=== PATIENT | female | born 1985 | race African-American/Black ===

== ENCOUNTER → 2018-06-17 | Outpatient (CLI) | payer OTHER | END | disposition home or self-care (01) | LOC: SURG 09:16 | PROVIDERS: ATTEND Anesthesiology Pain Medicine | DX: M47.26 Other spondylosis with radiculopathy, lumbar region (principal); M47.812 Spondylosis without myelopathy or radiculopathy, cervical region; M19.90 Unspecified osteoarthritis, unspecified site; Z79.899 Other long term (current) drug therapy | CPT/HCPCS: 99203 ==

== ENCOUNTER 2020-07-08 07:12 | Emergency (ER) | payer OTHER ==
[~2020-07-08] VITALS: Ht 162.6 cm; Wt 74.0 kg
[2020-07-08 07:18] VITALS: BP 124/89
[2020-07-08] MEDS ORDERED: CYCLOBENZAPRINE 10 MG TABLET. PO ONE (07:30)
--- NOTE | 2020-07-08 07:35 | PHYS DOC ---
Adult General [facility] HPI Patient is a 35F with no significant past medical history presents emergency department complaining of right-sided back pain. Patient states that approximate 1 month ago she started having spontaneous right lower back pain which radiates down the right leg. Patient describes this as a shooting pain down the right leg. Was seen in clinic on June 15 and was given muscle relaxants which helped but states that she is run out of them. Patient states pain is the same. Denies any new injury. Denies any numbness or weakness in either lower extremities. Review of Systems Review of Systems Constitutional: Denies fever or chills [] Eyes: Denies change in visual acuity, redness, or eye pain [] HENT: Denies nasal congestion or sore throat [] Respiratory: Denies cough or shortness of breath [] Cardiovascular: No additional information not addressed in HPI [] GI: Denies abdominal pain, nausea, vomiting, bloody stools or diarrhea [] : Denies dysuria or hematuria [] Musculoskeletal: Denies back pain or joint pain [] Integument: Denies rash or skin lesions [] Neurologic: Denies headache, focal weakness or sensory changes [] Endocrine: Denies polyuria or polydipsia [] All other systems were reviewed and found to be within normal limits, except as documented in this note. Physical Exam Physical Exam Constitutional: Well developed, well nourished, no acute distress, non-toxic appearance. [] HENT: Normocephalic, atraumatic, bilateral external ears normal, oropharynx moist, no oral exudates, nose normal. [] Eyes: PERRLA, EOMI, conjunctiva normal, no discharge. [] Neck: Normal range of motion, no tenderness, supple, no stridor. [] Cardiovascular:Heart rate regular rhythm, no murmur [] Lungs & Thorax: Bilateral breath sounds clear to auscultation [] Abdomen: Bowel sounds normal, soft, no tenderness, no masses, no pulsatile masses. [] Skin: Warm, dry, no erythema, no rash. [] Back: No tenderness, no CVA tenderness. [] Extremities: No tenderness, no cyanosis, no clubbing, ROM intact, no edema. [] Neurologic: Alert and oriented X 3, normal motor function, normal sensory function, no focal deficits noted. [] Psychologic: Affect normal, judgement normal, mood normal. [] Heart Score Risk Factors: Risk Factors: DM, Current or recent (<one month) smoker, HTN, HLP, family history of CAD, obesity. Risk Scores: Risk Factors: DM, Current or recent (<one month) smoker, HTN, HLP, family history of CAD, obesity. Course & Med Decision Making Course & Med Decision Making Pertinent Labs and Imaging studies reviewed. (See chart for details) 35-year-old female with acute on chronic right lower back pain which is most consistent with sciatica pain. At this time we will treat the patient symptomatically and feel the patient needs a follow-up with her primary care physician. Dragon Disclaimer Dragon Disclaimer This electronic medical record was generated, in whole or in part, using a voice recognition dictation system. Departure Departure: Impression: Primary Impression: Right sided sciatica Disposition: 01 DC HOME SELF CARE/HOMELESS Condition: GOOD Referrals: PCPJESUSITA (PCP) Patient Instructions: Sciatica, [id number] Additional Instructions: Thank you for visiting our emergency department. You were seen for your back pain. This is likely due to sciatica or mild pressure on the right side. We recommend that you make an appointment with your primary care physician as soon as possible to be further evaluated and treated for this condition. Please return the emergency department if there is any sudden worsening of your symptoms, numbness and weakness in your leg or fever greater than 101 F Scripts Cyclobenzaprine Hcl (CYCLOBENZAPRINE HCL) 10 Mg Tablet 1 TAB PO TID for pain for 30 Days, #90 TAB Prov: RAFITA SAMANO MD 07/08/20 RAFITA SAMANO MD Jul 08, 2020 07:35
[2020-07-08] MEDS ORDERED: KETOROLAC 30 MG/ML VIAL. IM ONE (07:45)
[2020-07-08] MEDS ORDERED: CYCL-331 PO (07:54)
[2020-07-09] MEDS ORDERED: CEPH-264 PO (00:19)
== END 2020-07-08 08:10 | disposition home or self-care (01) ==
LOC: ER 07:12
DX: M54.41 Lumbago with sciatica, right side (principal)
CPT/HCPCS: 96372; 99283; J1885

== ENCOUNTER 2020-07-08 21:12 | Emergency (ER) | payer OTHER ==
[~2020-07-08] VITALS: Ht 162.6 cm; Wt 74.0 kg
[~2020-07-08 21:12] MED LIST: CYCL-331 PO
--- NOTE | 2020-07-08 21:14 | PHYS DOC ---
Past History Past Medical History: No Pertinent History, UTI Past Surgical History: No Surgical History, Hysterectomy Alcohol Use: None General Adult HPI: HPI: ".. I ve been having back pain now off and on since May. I ve been on meds for muscle sprain with no improvement.. I just got to get some done to fix it..." Patient is a 35 year old FEMALE who presents with above hx and complaints of back pain that seems to be localized to right flank and lumbar area. Patient has been seen previously and diagnosed with muscle strain. Did do a course of muscle relaxants and ibuprofen with no improvement. No history of fever or chills. No history of trauma. No history of immunosuppression. No history of travel or specific ill contacts. Has history of previous urinary tract infections. No problems with defecation or urination noted. No history of cancer. No history of IV drug use. Has had history of previous urinary tract infections. No history of renal stones with her family members. Review of Systems: Review of Systems: Constitutional: Denies fever or chills Eyes: Denies change in visual acuity HENT: Denies nasal congestion or sore throat Respiratory: Denies cough or shortness of breath Cardiovascular: Denies chest pain or edema GI: Denies abdominal pain, nausea, vomiting, bloody stools or diarrhea : Denies dysuria Musculoskeletal: Complains of right flank back pain Integument: Denies rash Neurologic: Denies headache, focal weakness or sensory changes Endocrine: Denies polyuria or polydipsia Lymphatic: Denies swollen glands Psychiatric: Denies depression or anxiety Family History: Family History: Noncontributory to presentation Current Medications: Current Meds: See nursing for home meds Allergies: Allergies: Allergies Coded Allergies Type Severity Reaction Last Updated Verified No Known Drug Allergies 07/08/20 No Physical Exam: PE: Constitutional: Moderate acute distress, non-toxic appearance. [] HENT: Normocephalic, atraumatic, bilateral external ears normal, oropharynx moist, no oral exudates, nose normal. [] Eyes: PERRLA, EOMI, conjunctiva normal, no discharge. [] Neck: Normal range of motion, no tenderness, supple, no stridor. [] Cardiovascular:Heart rate regular rhythm, no murmur [] Lungs & Thorax: Bilateral breath sounds clear to auscultation [] Abdomen: Bowel sounds normal, soft, no tenderness, no masses, no pulsatile masses. Old surgery scar Skin: Warm, dry, no erythema, no rash. [] Back: No tenderness, right flank CVA tenderness. Some right lumbar muscle tenderness. Extremities: No tenderness, no cyanosis, no clubbing, ROM intact, no edema. [] Neurologic: Alert and oriented X 3, normal motor function, normal sensory function, no focal deficits noted. DTRs +2 at patella and brachial. Straight leg lift does not exacerbate sciatic nerve pain. Psychologic: Affect anxious , judgement normal, mood normal. [] EKG: EKG: [] Radiology/Procedures: Radiology/Procedures: [facility] [place] [id number] IMAGING REPORT Signed PATIENT: PRIYANKA PEPPER ACCOUNT: [id number] : 1985 LOCATION: ER AGE: 35 SEX: F EXAM STATUS: REG ER ORD. PHYSICIAN: HOUSTON BERNAL MD REASON: Rt. flank back pain PROCEDURE: CT LUMBAR SPINE WO CONTRAST Exam: CT lumbar spine without contrast INDICATION: Right flank pain, back pain TECHNIQUE: Sequential axial images through the lumbar spine obtained without IV contrast. Sagittal and coronal reformatted images were reconstructed from the axial data and reviewed. Comparisons: None FINDINGS: Vertebral body heights and alignment are well-maintained. Fracture to the lumbar spine is not identified. No significant spondylotic change in the lumbar spine. Visualized paraspinal soft tissues are unremarkable. IMPRESSION: Negative CT lumbar spine for acute traumatic injury. Exposure: One or more of the following in the visualized dose reduction techniques were utilized for this examination: 1. Automated exposure control 2. Adjustment of the MA and/or KV according to patient size 3. Use of iterative of reconstructive technique Electronically signed by: Kayla Simmons MD (07/08/2020 11:31 PM) [facility] DICTATED AND SIGNED BY: KAYLA SIMMONS MD DATE: 07/08/202328 CC: HOUSTON BERNAL MD; PCP,NO ~MTH0 0 Heart Score: Risk Factors: Risk Factors: DM, Current or recent (<one month) smoker, HTN, HLP, family history of CAD, obesity. Risk Scores: Score 0 - 3: 2.5% MACE over next 6 weeks - Discharge Home Score 4 - 6: 20.3% MACE over next 6 weeks - Admit for Clinical Observation Score 7 - 10: 72.7% MACE over next 6 weeks - Early Invasive Strategies Course & Med Decision Making: Course & Med Decision Making Pertinent Labs and Imaging studies reviewed. (See chart for details) Patient Tylenol ibuprofen for pain. Patient push fluids. Patient take Keflex 500 mg 3 times a day for 7 days. Patient follow-up urine cultures. Patient follow-up primary. Patient return if any concerns. Patient push vitamin C drinks. Impression: 1. Right flank back pain 2. Urinary tract infection [] Dragon Disclaimer: Dragon Disclaimer: This electronic medical record was generated, in whole or in part, using a voice recognition dictation system. Departure Departure: Referrals: PCP,NO (PCP) Scripts Cephalexin (KEFLEX) 500 Mg Capsule 500 MG PO TID for UTI for 7 Days, BOTTLE Prov: HOUSTON BERNAL MD 07/09/20 Dragon Disclaimer This chart was dictated in whole or in part using Voice Recognition software in a busy, high-work load, and often noisy Emergency Department environment. It may contain unintended and wholly unrecognized errors or omissions. Dragon Disclaimer This chart was dictated in whole or in part using Voice Recognition software in a busy, high-work load, and often noisy Emergency Department environment. It may contain unintended and wholly unrecognized errors or omissions. HOUSTON BERNAL MD Jul 08, 2020 21:14
[2020-07-08 21:51] VITALS: BP 126/84
[2020-07-08 22:08] LABS: AMPHETAMINE/METHAMPHETAMINE NEG (NEG); BARBITURATES NEG (NEG); BENZODIAZEPINES NEG (NEG); CANNABINOIDS NEG (NEG); COCAINE NEG (NEG); METHADONE NEG (NEG); OPIATES NEG (NEG); PHENCYCLIDINE NEG (NEG)
[2020-07-08 22:19] LABS: BACTERIA,URINE 0 /HPF (0-FEW); BILIRUBIN,URINE NEG (NEG); CLARITY,URINE CLEAR; COLOR,URINE COLORLESS; GLUCOSE,URINE NEG (NEG); NITRITE,URINE NEG (NEG); SQUAMOUS EPITHELIAL CELL,UR MANY /LPF; UROBILINOGEN,URINE 0.2 mg/dL (0.2 mg/dL)
--- NOTE | 2020-07-08 23:33 | RAD ---
Exam: CT lumbar spine without contrast INDICATION: Right flank pain, back pain TECHNIQUE: Sequential axial images through the lumbar spine obtained without IV contrast. Sagittal an d coronal reformatted images were reconstructed from the axial data and reviewed. Comparisons: None FINDINGS: Vertebral body heights and alignment are well-maintained. Fracture to the lumbar spine is not identified. No significant spondylotic change in the lumbar spine. Visualized paraspinal soft tissues are unremarkable. IMPRESSION: Negative CT lumbar spine for acute traumatic injury. Exposure: One or more of the following in the visualized dose reduction techniques were utilized for this examination: 1. Automated exposure control 2. Adjustment of the MA and/or KV according to patient size 3. Use of iterative of reconstructive technique Electronically signed by: Denise Ascencio MD (07/08/2020 11:31 PM) [facility]
[2020-07-09] MEDS ORDERED: CEPH-264 PO (00:19)
[2020-07-09] MEDS ORDERED: cefTRIAXone SODIUM 1 GM VIAL ONE (00:38)
[2020-07-09] MEDS ORDERED: LIDOCAINE 1% Multi-Dose 20 ML VIAL. ONE (00:38)
== END 2020-07-09 00:47 | disposition home or self-care (01) ==
LOC: ER 21:12
DX: N39.0 Urinary tract infection, site not specified (principal); M54.5 Low back pain; Z87.440 Personal history of urinary (tract) infections; Z90.710 Acquired absence of both cervix and uterus
CPT/HCPCS: 36415; 72131; 80307; 81001; 81025; 87086; 96365; 99284; J0696

== ENCOUNTER → 2020-07-26 | Outpatient (CLI) | payer OTHER ==
[2020-07-08 21:51] VITALS: BP 126/84
[~2020-07-26] MED LIST changes: +CEPH-264 PO
--- NOTE | 2020-07-26 12:06 | RAD ---
US ABDOMEN COMPLETE: 07/26/2020 7:54 AM Indication: 35 years old Female. Colicky right upper quadrant abdominal pain. Comparison: None. TECHNIQUE: Sonographic evaluation of the abdomen is performed utilizing grayscale and color Doppler. FINDINGS: Liver: Homogenous normal echotexture.. There is hepatopedal flow within the portal venous system. Rig ht hepatic lobe measures 16.1 cm. Biliary system: CBD measures 2 mm. There is no intrahepatic or extrahepatic biliary dilatation. Gallbladder: No stones, wall thickening or pericholecystic fluid. . Sonographic Sheth sign: Negative Pancreas: Visualized head and uncinate process are unremarkable. Body and tail are not visualized. Spleen: 8.0 cm. Right kidney: 11.0 x 5.0 x 4.0 cm. No hydronephrosis. Normal echotexture without focal mass or renal calculus. Left kidney: 11.7 x 4.0 x 4.3 cm. No hydronephrosis. Normal echotexture without focal mass or renal c alculus. Abdominal aorta and IVC: Visualized portions unremarkable. Free fluid:None. IMPRESSION: No suspicious sonographic abnormality. No cholelithiasis or sonographic evidence for acute cholecysti tis. Electronically signed by: Stephy Patel MD (07/26/2020 12:04 PM) [id number]
== END ==
LOC: US 07:48
DX: R10.11 Right upper quadrant pain (principal)
CPT/HCPCS: 76700

== ENCOUNTER → 2020-08-20 | Outpatient (CLI) | payer OTHER ==
[~2020-08-20] VITALS: Ht 162.6 cm; Wt 72.6 kg
[~2020-08-20] MED LIST changes: +SINCALIDE 1.45 MCG in IV NORMAL SALINE 50ML 30 ML IV ONE
--- NOTE | 2020-08-20 10:17 | RAD ---
EXAM: Nuclear hepatobiliary scan. HISTORY: Right-sided pain. TECHNIQUE: Following intravenous administration of 5.4 mCi Tc 99m Choletec, anterior images of the ab domen were obtained at five minute intervals through one hour. Subsequently, 1.45 mcg CCK was adminis tered and additional images to assess gallbladder ejection fraction were obtained. FINDINGS: There is prompt radiotracer uptake by the liver. No focal defect is seen. There is normal e xcretion into the biliary tree. The gallbladder is visualized within 10 minutes and there is free ryan w into the duodenum. The gallbladder ejection fraction is 71 percent. IMPRESSION: Normal radionuclide biliary scan. Electronically signed by: Kassie Brunner MD (08/20/2020 10:15 AM) [id number]
== END ==
LOC: NM 07:47
PROVIDERS: ATTEND Physician Assistant
DX: R10.11 Right upper quadrant pain (principal)
CPT/HCPCS: 78227; A9537; J2805

== ENCOUNTER → 2021-09-06 | Outpatient (CLI) | payer BC ==
[~2021-09-06] MED LIST changes: -CYCL-331 PO; +CYCL10TA19 PO; -SINCALIDE 1.45 MCG in IV NORMAL SALINE 50ML 30 ML IV ONE
--- NOTE | 2021-09-06 15:16 | RAD ---
EXAM: Left hip, 2 views. HISTORY: Pain. COMPARISON: None. FINDINGS: 2 views of the left hip are obtained. There is no fracture, dislocation or subluxation. The re is mild marginal left femoral head spurring. There is osteitis pubis. IMPRESSION: 1. Mild left hip osteoarthritis. 2. Osteitis pubis. Electronically signed by: Kassie Brunner MD (09/06/2021 3:14 PM) [id number]
== END ==
LOC: RAD 12:06
PROVIDERS: ATTEND Internal Medicine
DX: M16.12 Unilateral primary osteoarthritis, left hip (principal); M86.8X8 Other osteomyelitis, other site
CPT/HCPCS: 73502